=== PATIENT | female | born 1995 | race Caucasian/White ===

== ENCOUNTER 2016-11-23 15:43 | Emergency (ER) | payer OTHER ==
[~2016-11-23] VITALS: Ht 160 cm; Wt 72.0 kg
[~2016-11-23 15:43] MED LIST: BENADRYL 50MG C50 MG PO; ELIMITE60 GM EX; IMITREX25 MG PO; LOMOTIL2.5 MG PO; NAPROSYN500 MG PO
[2016-11-23 16:07] VITALS: BP 141/90
== END 2016-11-23 16:56 | disposition home or self-care (01) | DRG 392 ==
LOC: ED 15:43
DX: K52.9 Noninfective gastroenteritis and colitis, unspecified (principal)

== ENCOUNTER 2017-08-28 11:11 | Emergency (ER) | payer OTHER ==
[~2017-08-28] VITALS: Ht 160 cm; Wt 70.0 kg
[2017-08-28 11:46] LABS: URINE BILIRUBIN - DIPSTICK NEGATIVE (NEGATIVE); URINE BLOOD DIPSTICK NEGATIVE (NEGATIVE); URINE COLOR YELLOW; URINE GLUCOSE - DIPSTICK NEGATIVE (NEGATIVE); URINE KETONE NEGATIVE (NEGATIVE); URINE LEUK ESTERASE NEGATIVE (NEGATIVE); URINE NITRITE - DIPSTICK NEGATIVE (Negative); URINE PH 6.5 (4.5-8.0); URINE PROTEIN - DIPSTICK NEGATIVE (NEG-TRACE); URINE SPECIFIC GRAVITY <=1.005; URINE UROBILINOGEN - DIPSTICK 0.2 E.U./dL (0.2)
[2017-08-28 11:47] LABS: URINE CLARITY CLEAR
[2017-08-28 11:47] LABS: HEMATOCRIT 38.3 % (37.0-47.0); HEMOGLOBIN 12.6 g/dl (12.0-16.0); IMMATURE GRANULOCYTES 0.2 % (0.0-1.0); MEAN CELL VOLUME 86.3 fL CALC (80.0-100.0); MEAN CORPUSCULAR HGB 28.4 pG CALC (26.0-32.0); MEAN CORPUSCULAR HGB CONC 32.9 g/L CALC (32.0-36.0); NEUT# 2.78 thou/uL (2.00-7.15); RED BLOOD COUNT 4.44 mill/uL (4.20-5.60); RED CELL DISTRI WIDTH 13.1 % (11.5-15.5)
[2017-08-28 12:07] LABS: ALBUMIN 4.6 g/dL (3.2-5.0); ALKALINE PHOSPHATASE 69 u/l (38-126); ANION GAP 17 (6-22 (CALC)); BILIRUBIN, TOTAL 0.5 mg/dL (0.0-1.4); BUN 12 mg/dL (7-17); BUN/CREATININE RATIO 18 (12-20 (CALC)); CARBON DIOXIDE 21 mmol/l (22-30); CHLORIDE 106 mmol/l (95-108); CREATININE 0.7 mg/dL (0.5-1.0); GFR > 60 ML/MIN (>=60 (CALC)); GFR FOR AFR.AMER. > 60 ML/MIN (>=60 (CALC)); LIPASE 75 u/l (23-300); POTASSIUM 3.6 mmol/l (3.5-5.1); SGOT/AST 20 u/l (14-36); SGPT/ALT 29 u/l (9-52); SODIUM 140 mmol/l (137-146)
[2017-08-28] MEDS ORDERED: PROTONIX40 MG PO (12:21)
[2017-08-28] MEDS ORDERED: ONDANSETRON4 MG PO (12:21)
[2017-08-28 12:31] VITALS: BP 116/72
== END 2017-08-28 12:31 | disposition home or self-care (01) | DRG 392 ==
LOC: ED 11:11
PROVIDERS: Emergency Medicine
DX: R11.2 Nausea with vomiting, unspecified (principal)

== ENCOUNTER 2018-03-13 11:44 | Emergency (ER) | payer OTHER ==
[~2018-03-13] VITALS: Ht 162.6 cm; Wt 68.2 kg
[~2018-03-13 11:44] MED LIST changes: +ONDANSETRON4 MG PO; +PROTONIX40 MG PO
[2018-03-13 12:59] LABS: INFLUENZA B NONE DETECTED (NONE DETECT)
[2018-03-13] MEDS ORDERED: MEDDOSEPAK PO (13:10)
[2018-03-13] MEDS ORDERED: TESSALON PERLE100 MG PO (13:10)
[2018-03-13] MEDS ORDERED: AMOXICILLIN875 MG PO (13:10)
[2018-03-13 13:20] VITALS: BP 144/85
== END 2018-03-13 13:20 | disposition home or self-care (01) | DRG 153 ==
LOC: ED 11:44
PROVIDERS: Emergency Medicine
DX: J02.0 Streptococcal pharyngitis (principal); R05 Cough; R09.81 Nasal congestion; R51 Headache

== ENCOUNTER 2019-03-20 08:02 | Emergency (ER) | payer OTHER ==
[~2019-03-20] VITALS: Ht 162.6 cm; Wt 70.0 kg
[~2019-03-20 08:02] MED LIST changes: +AMOXICILLIN875 MG PO; +MEDDOSEPAK PO; +TESSALON PERLE100 MG PO
[2019-03-20 08:57] LABS: URINE BILIRUBIN - DIPSTICK NEGATIVE (NEGATIVE); URINE BLOOD DIPSTICK TRACE-INTACT (NEGATIVE); URINE COLOR YELLOW; URINE GLUCOSE - DIPSTICK NEGATIVE (NEGATIVE); URINE KETONE 40 mg/dL (NEGATIVE); URINE NITRITE - DIPSTICK NEGATIVE (Negative); URINE PROTEIN - DIPSTICK NEGATIVE (NEG-TRACE); URINE SPECIFIC GRAVITY 1.025; URINE UROBILINOGEN - DIPSTICK 0.2 E.U./dL (0.2)
[2019-03-20 09:01] LABS: URINE LEUK ESTERASE MODERATE (NEGATIVE)
[2019-03-20 09:02] LABS: URINE RBC 0-2 RBC/hpf (0-5)
[2019-03-20] MEDS ORDERED: KEFLEX500 MG PO (09:25)
[2019-03-20 09:42] VITALS: BP 130/78
== END 2019-03-20 09:43 | disposition home or self-care (01) | DRG 833 ==
LOC: ED 08:02
DX: O23.40 Unspecified infection of urinary tract in pregnancy, unspecified trimester (principal); O99.512 Diseases of the respiratory system complicating pregnancy, second trimester; J06.9 Acute upper respiratory infection, unspecified; Z3A.14 14 weeks gestation of pregnancy

== ENCOUNTER 2020-08-14 11:26 | Emergency (ER) | payer MEDICAID ==
[~2020-08-14 11:26] MED LIST changes: +KEFLEX500 MG PO
[2020-08-14] MEDS ORDERED: AMOXICILLIN875 MG PO (12:37)
[2020-08-14 12:50] VITALS: BP 130/81
== END 2020-08-14 12:50 | disposition home or self-care (01) ==
LOC: ED 11:26
DX: J02.0 Streptococcal pharyngitis (principal); Z20.822 Contact with and (suspected) exposure to COVID-19

== ENCOUNTER 2021-05-03 11:44 | Emergency (ER) | payer MEDICAID ==
[~2021-05-03] VITALS: Ht 160 cm; Wt 72.7 kg
[2021-05-03] MEDS ORDERED: ZPAK PO (13:50)
[2021-05-03] MEDS ORDERED: ZOFRAN4 MG/TAB PO (13:50)
[2021-05-03 13:56] VITALS: BP 143/85
== END 2021-05-03 13:56 | disposition home or self-care (01) ==
LOC: ED 11:44
DX: U07.1 COVID-19 (principal); F41.9 Anxiety disorder, unspecified; F31.9 Bipolar disorder, unspecified

== ENCOUNTER 2021-05-29 23:36 | Emergency (ER) | payer MEDICAID ==
[~2021-05-29] VITALS: Ht 157.5 cm; Wt 81.0 kg
[~2021-05-29 23:36] MED LIST changes: +ZOFRAN4 MG/TAB PO; +ZPAK PO
[2021-05-29 23:48] VITALS: BP 117/79
[2021-05-30] VITALS: BP 113/76
[2021-05-30] MEDS ORDERED: NAPROXEN500 MG PO (00:26)
[2021-05-30 00:30] VITALS: BP 114/76
[2021-05-30 00:39] VITALS: BP 98/52
[2021-05-30 00:43] VITALS: BP 98/52
== END 2021-05-30 00:52 | disposition home or self-care (01) ==
LOC: ED 23:36
DX: S93.401A Sprain of unspecified ligament of right ankle, initial encounter (principal); F31.9 Bipolar disorder, unspecified; X50.0XXA Overexertion from strenuous movement or load, initial encounter

== ENCOUNTER 2021-06-24 19:36 | Emergency (ER) | payer MEDICAID ==
[~2021-06-24 19:36] MED LIST changes: +NAPROXEN500 MG PO
== END 2021-06-24 20:50 | disposition left against medical advice (07) | DRG 951 ==
LOC: ED 19:36 → LWOBS 20:50
DX: Z53.21 Procedure and treatment not carried out due to patient leaving prior to being seen by health care provider (principal)

== ENCOUNTER 2021-06-26 10:56 | Emergency (ER) | payer MEDICAID ==
[~2021-06-26] VITALS: Ht 157.5 cm; Wt 67.0 kg
[2021-06-26] MEDS ORDERED: LEXAPRO10 MG PO (12:58)
[2021-06-26] MEDS ORDERED: XANAX1 MG PO (12:59)
[2021-06-26] MEDS ORDERED: LAMICTAL25 M2 PO (13:40)
[2021-06-26] MEDS ORDERED: HYDROCO/APAP1 TA9 PO (13:53)
[2021-06-26] MEDS ORDERED: AMOX/K CLAV875 M1 PO (13:53)
[2021-06-26 14:04] VITALS: BP 113/69
== END 2021-06-26 14:08 | disposition home or self-care (01) ==
LOC: ED 10:56
DX: K02.9 Dental caries, unspecified (principal); S02.5XXA Fracture of tooth (traumatic), initial encounter for closed fracture; F31.9 Bipolar disorder, unspecified; F41.9 Anxiety disorder, unspecified; X58.XXXA Exposure to other specified factors, initial encounter; Z86.16 Personal history of COVID-19

== ENCOUNTER 2021-07-31 13:06 | Emergency (ER) | payer MEDICAID ==
[~2021-07-31] VITALS: Ht 157.5 cm; Wt 74.7 kg
[~2021-07-31 13:06] MED LIST changes: +AMOX/K CLAV875 M1 PO; +HYDROCO/APAP1 TA9 PO; +LAMICTAL25 M2 PO; +LEXAPRO10 MG PO; +XANAX1 MG PO
[2021-07-31 13:13] VITALS: BP 130/89
[2021-07-31 13:15] VITALS: BP 131/91
[2021-07-31 13:30] VITALS: BP 114/80
[2021-07-31 13:45] VITALS: BP 125/84
[2021-07-31] MEDS ORDERED: CLINDAMYCIN HY150 MG PO (13:46)
[2021-07-31 14:01] VITALS: BP 100/54
[2021-07-31 14:12] VITALS: BP 100/54
== END 2021-07-31 14:20 | disposition home or self-care (01) ==
LOC: ED 13:06
DX: K02.9 Dental caries, unspecified (principal); S02.5XXA Fracture of tooth (traumatic), initial encounter for closed fracture; F41.9 Anxiety disorder, unspecified; F31.9 Bipolar disorder, unspecified; X58.XXXA Exposure to other specified factors, initial encounter; Z86.16 Personal history of COVID-19

== ENCOUNTER 2024-03-28 19:38 | Emergency (ER) | payer OTHER ==
[~2024-03-28] VITALS: Ht 162.6 cm; Wt 81.0 kg
[~2024-03-28 19:38] MED LIST changes: +CLINDAMYCIN HY150 MG PO; +TAM75CAP PO
[2024-03-28] MEDS ORDERED: NAPROXEN500 MG PO (21:43)
[2024-03-28 22:16] VITALS: BP 128/79
== END 2024-03-28 22:16 | disposition home or self-care (01) ==
LOC: ED 19:38
DX: M79.671 Pain in right foot (principal); F41.9 Anxiety disorder, unspecified; F31.9 Bipolar disorder, unspecified

== ENCOUNTER 2024-05-02 10:58 | Emergency (ER) | payer OTHER ==
[~2024-05-02] VITALS: Ht 162.6 cm; Wt 81.0 kg
[2024-05-02] MEDS ORDERED: ZPAK PO ×2 (12:02→14:21)
[2024-05-02] MEDS ORDERED: BENZONATATE200 MG PO ×2 (12:02→14:21)
[2024-05-02] MEDS ORDERED: MEDDOSEPAK PO ×2 (12:02→14:21)
[2024-05-02 12:47] VITALS: BP 119/71
== END 2024-05-02 12:47 | disposition home or self-care (01) ==
LOC: ED 10:58
DX: J20.9 Acute bronchitis, unspecified (principal); F41.9 Anxiety disorder, unspecified; F31.9 Bipolar disorder, unspecified; Z86.16 Personal history of COVID-19; Z20.822 Contact with and (suspected) exposure to COVID-19

== ENCOUNTER 2024-06-06 00:10 | Emergency (ER) | payer OTHER ==
[~2024-06-06] VITALS: Ht 162.6 cm; Wt 81.0 kg
[~2024-06-06 00:10] MED LIST changes: +BENZONATATE200 MG PO
[2024-06-06] MEDS ORDERED: Diph, Acellular Pertussis, Tet 0.5 ML/VIAL (Tdap) SDV IM ONE (00:30)
[2024-06-06] MEDS ORDERED: LIDOCAINE HCL 2% STI ONE (00:30)
[2024-06-06] MEDS ORDERED: LIDOcaine HCl 1% (Local Anesth.) 20 ML VIAL ONE (00:40)
[2024-06-06] MEDS ORDERED: NEOMYCIN-BACITRACIN-POLYMYXIN 0.5 GM/PAK PAK TOP ONE (01:35)
[2024-06-06 03:22] VITALS: BP 126/73
== END 2024-06-06 03:22 | disposition home or self-care (01) ==
LOC: ED 00:10
DX: S91.312A Laceration without foreign body, left foot, initial encounter (principal); F41.9 Anxiety disorder, unspecified; F31.9 Bipolar disorder, unspecified; W25.XXXA Contact with sharp glass, initial encounter
CPT/HCPCS: 90715